=== PATIENT | male | born 1955 | race Caucasian/White ===

== ENCOUNTER → 2022-06-30 | Outpatient (CLI) | payer OTHER, SELFPAY ==
--- NOTE | 2022-06-30 10:00 | PET_ITS ---
EXAMINATION: FDG PET/CT ? INDICATIONS: 66-year-old male with a history of head/neck carcinoma, presenting for apparent initial staging examination. ? COMPARISON EXAMINATION: None available. ? INDEX LESION SIZE SUV INTERPRETATION Left pharyngeal mucosal space, parapharyngeal space, pterygopalatine fossa 33.7 mm 9.1 Fulfills quantitative criteria for viable neoplasm ? Left lateral neck Level IIA 12.5 mm 3.5 Fulfills quantitative criteria for viable neoplasm ? TECHNIQUE: Following the intravenous administration of 12.221 mCi of F-18 deoxyglucose via the left antecubital fossa, multiplanar image acquisitions of the neck, chest, abdomen and pelvis to the level of the midthigh, obtained at one-hour post radiopharmaceutical administration contemporaneously interpreted reveal: ? SERUM GLUCOSE LEVEL:? 103 mg/dL? HEIGHT:?? 72 inches WEIGHT:?? 148 pounds ? FINDINGS: ? HEAD/NECK:? Increased FDG uptake is noted in the left pharyngeal mucosal space, parapharyngeal space extending cephalad to the nasopharynx and region of the left pterygopalatine fossa. The calculated maximum standard uptake value is 9.1. The maximal axial diameter of the largest hypermetabolic component is 33.7 mm AP. Additional foci of increased radiopharmaceutical concentration are noted in the left lateral neck involving Level IIA. The calculated maximum standard uptake value is 3.5. The maximal axial diameter of the largest corresponding soft tissue density is 12.5 mm. ? The visualized portion of the cerebral cortical-subcortical structures demonstrate symmetric and preserved glucose metabolism. ? CHEST:? There is no quantitative scintigraphic evidence of abnormal increased glucose metabolism within the context of the bilateral hemithorax pulmonary parenchyma, right and left hemithorax at the pleural interface, mediastinal structures, and left-right thoracic perihilum. ? CT of the chest demonstrates the following anatomic characteristics: Atherosclerotic calcification is defined in the thoracic aorta without evidence of dilatation, aneurysm formation. Coronary arterial calcification is observed. Bilateral axillary soft tissue densities are nonglucose avid. Mediastinal soft tissue is ametabolic. There are no parenchymal densities-nodules defined in the right and left hemithorax with quantitatively significant increased FDG uptake. ? ABDOMEN/PELVIS:? Normal physiologic distribution of the radiopharmaceutical is identified in the hepatic (3.1) and splenic parenchyma, both renal units, urinary bladder, and visualized intestinal tract. ? CT of the abdomen and pelvis is remarkable for the following: Postsurgical changes are defined in the anterior pelvic wall bilaterally. Right and left inguinal soft tissue densities demonstrate no evidence of increased tracer uptake. Calcification is defined in the pancreatic tail. Atherosclerotic calcification is defined in the abdominal aorta without evidence of dilatation, aneurysm formation. Pelvic arterial calcification is defined. ? SKELETAL:? There is no evidence of quantitatively significant enhanced glucose metabolism on meticulous inspection of the appendicular and axial skeletal structures. ? Degenerative changes defined in the thoracic and lumbar spine demonstrate no evidence of increased glucose metabolism. ? PET/PET/CT Tumor Base -Thigh Init IMPRESSION: 1. ABNORMAL EXAMINATION INDICATIVE OF MALIGNANT-VIABLE NEOPLASM. 2. Facilitated radiopharmaceutical concentration noted in the left pharyngeal mucosal space, parapharyngeal space, and pterygopalatine fossa fulfills quantitative criteria for neoplasia. 3. Enhanced tracer uptake identified in the left lateral neck involving Level IIA fulfills quantitative criteria for viable neoplastic transformation. Electronic Signature Jonah Feng D.O. Accurate Quantification of SUVs for this report are calculated using the exclusive [employer]. ([place] Patent No. [id number]). Standardization and correction of the FDG SUV metric via [employer] technology allow for vendor non-specific objective quantitative examination comparison and optimization of the sensitivity and specificity of the FDG PET-CT examination. Electronically Signed: Jonah Feng, at 18:45 EST ,
== END | disposition home or self-care (01) ==
LOC: ONC 10:03
PROVIDERS: PCP Student in an Organized Health Care Education/Training Program; Referring Provider Otolaryngology; Visit Provider Otolaryngology
DX: C07 Malignant neoplasm of parotid gland (principal); R22.1 Localized swelling, mass and lump, neck
CPT/HCPCS: 78815; A9552; A9588